=== PATIENT | female | born 1990 | race American Indian/Alaskan Native ===

== ENCOUNTER 2017-09-13 20:13 | Emergency (ER) | payer SELFPAY ==
--- NOTE | 2017-09-14 01:28 | Emergency Department Report ---
ED Rash HPI - HPI Chief Complaint: Allergic Reaction Stated Complaint: SWOLLEN LIPS Time Seen by Provider: 09/14/17 01:25 Duration: 2 Days Location: Other (lower left lip) Suspected Cause: Unknown Rash Symptoms: Yes Blistering (lower left lip sore that started out as a blister 2 days ago.), No Itching, No Facial Swelling, No Tongue/Oral Swelling, No Breathing Difficulties, No Choking Sensation, No Wheezing/Dyspnea, No Peeling , No Fever, No Lightheaded, No Malaise, No Myalgias Severity: mild (3/10 with touch) Other History: Patient reports that she has a sore to the bottom left lip that started 2 days ago. She says she has had in the past but it wasn't so bad. She said is not allergic reaction. She reports pain to touch. Denies any nausea or vomiting. Denies any shortness of breath or chest pain. Denies any soreness down, drooling, sore throat or difficulty speaking. Denies any coughing or wheezing. Last menstrual cycle was 09/13/2017. No over-the- counter medication taken. Pain worse with touching. Patient with elevated blood pressure but reports that she's never had high blood pressure in the past. Denies any headache, visual difficulties, nausea vomiting or blurred vision. Denies any chest pain or shortness of breath. ED Review of Systems ROS: Stated complaint: SWOLLEN LIPS Other details as noted in HPI Comment: All other systems reviewed and negative Constitutional: no symptoms reported Eyes: denies: eye pain, eye discharge ENT: other (swelling to lower left lip with sore.). denies: throat pain, congestion Respiratory: no symptoms reported Cardiovascular: denies: chest pain, palpitations, dyspnea on exertion, edema, syncope, paroxysmal nocturnal dyspnea Gastrointestinal: denies: abdominal pain, nausea, vomiting, diarrhea, constipation Genitourinary: denies: dysuria, hematuria Musculoskeletal: denies: back pain, joint swelling, arthralgia, myalgia Skin: rash Neurological: denies: headache, abnormal gait, vertigo ED Past Medical Hx - Past Medical History Previous Medical History?: No - Surgical History Past Surgical History?: No - Family History Family history: no significant - Social History Smoking Status: Never Smoker Substance Use Type: None - Medications Home Medications: Home Medications Medication Instructions Recorded Confirmed Last Taken Type Ibuprofen [Motrin] 600 mg PO Q8H PRN #12 tablet 09/14/17 Unknown Rx Valacyclovir HCl [Valtrex] 1,000 mg PO TID 7 Days #21 tablet 09/14/17 Unknown Rx Rash Exam - Exam General: Vital signs noted. No distress. Alert and acting appropriately. This is a 26-year-old female well-nourished well-developed in no acute distress. HEENT: No Periorbital Edema, No Conjuctival Injection, No Chemosis, No Perioral Edema, No Tongue Edema, No Uvular Edema, No Compromised Airway, No Drooling ( oral airways patent.) Lungs: Yes Good Air Exchange (clear to auscultate bilaterally,), Yes Other Abnormal Lung Sounds (patient with swelling in to left lower lip with herpetic type lesion that is tender to palpate no drainage.), No Wheezes, No Ronchi, No Stridor, No Cough, No Labored Respirations, No Retractions, No Use of Accessory Muscles Heart: Yes Regular (S1, S2. Regular rate and rhythm), No Murmur Skin: Yes Tenderness (left lower lip), Yes Erythema (left lower lip), Yes Edema (left lower lip), Yes Other (lesion to left lower lip tender to palpate with surrounding erythema and swelling. No airway compromise), No Urticarial Rash, No Maculopapular Rash, No Morbilliform rash, No Bulla(e), No Excoriations, No Weeping Other: Positive: Abdomen Normal (nontender to palpate in all quadrants, no guarding or rebound tenderness and normal bowel sounds), Neurologic Normal ( alert and oriented 3, speech is clear and fluid, no facial droop and normal gait), Musculoskeletal Normal (full range of motion to all extremities, +2 pulses in all extremities. No clubbing, cyanosis or edema.) ED Course Vital Signs 09/13/17 09/13/17 20:36 20:44 Temperature 99.0 F 99 F Pulse Rate 85 Respiratory 18 18 Rate Blood Pressure 133/100 155/102 O2 Sat by Pulse 100 Oximetry Vital Signs 09/13/17 09/13/17 09/14/17 20:36 20:44 01:52 Temperature 99.0 F 99 F 98.5 F Pulse Rate 85 74 Respiratory 18 18 17 Rate Blood Pressure 133/100 155/102 Blood Pressure 147/102 [Right] O2 Sat by Pulse 100 100 Oximetry - Reevaluation(s) Reevaluation #1: 09/14/17 01:44 Patient had uneventful ED stay. ED Medical Decision Making - Medical Decision Making ED course: Patient with herpetic-type lesion to left lower lip that started 2 days ago. She's had similar incident in the past but she said it was not as bad. I discussed with her diagnosis and treatment plan. Patient also with elevated blood pressure during ED stay. She denies having a history of high blood pressure. She is asymptomatic. I discussed with her that she needs to keep a log of her blood pressure and when she goes to [facility] to bring to primary care visit. She voiced understanding and patient discharged home with her family with prescription for Valtrex and Motrin, to follow up with primary care physician and 2-3 days and if she does not have one to follow-up with [facility]. Critical care attestation.: If time is entered above; I have spent that time in minutes in the direct care of this critically ill patient, excluding procedure time. ED Disposition Clinical Impression: Cold sore, Pain, lip, Elevated blood pressure reading without diagnosis of hypertension Disposition: DC-01 TO HOME OR SELFCARE Is pt being admited?: No Does the pt Need Aspirin: No Condition: Stable Instructions: Oral Herpes Simplex Virus Infections (ED), DASH Eating Plan (ED) , Low Sodium Diet (ED), Hypertension (ED) Additional Instructions: The same Valtrex as prescribed for hepatic lesion on your mouth Keep affected area clean and dry Follow-up with outside Medical Center in 2-3 days Please keep a log a few blood pressure and take to primary care physician with you for evaluation. Prescriptions: Ibuprofen [Motrin] 600 mg PO Q8H PRN #12 tablet PRN Reason: Pain Valacyclovir HCl [Valtrex] 1,000 mg PO TID 7 Days #21 tablet Referrals: [facility] [Outside] - 2-3 Days Forms: Accompanied Note, Work/School Release Form(ED)
[2017-09-14 01:52] VITALS: BP 147/102
== END 2017-09-14 02:00 | disposition home or self-care (01) ==
LOC: ED 20:13
DX: B00.1 Herpesviral vesicular dermatitis (principal); R03.0 Elevated blood-pressure reading, without diagnosis of hypertension
CPT/HCPCS: 99282

== ENCOUNTER 2018-02-18 17:17 | Emergency (ER) | payer OTHER ==
--- NOTE | 2018-02-19 00:10 | Emergency Department Report ---
ED Lower Extremity HPI - General Chief Complaint: Extremity Injury, Lower Stated Complaint: LEFT TOE PAIN Time Seen by Provider: 02/18/18 23:26 Source: patient Mode of arrival: Ambulatory Limitations: No Limitations - History of Present Illness Initial Comments: This is a 27-year-old female nontoxic, well nourished in appearance, no acute signs of distress presents to the ED with c/o of right great toe pain 1 day. Patient stated that she hit her toe against the refrigerator. Patient denies any other trauma. Patient denies any numbness, tingling, fever, chills, nausea , vomiting, chest pain, shortness of breath, headache, stiff neck. Patient denies any joint swelling or joint redness. Patient denies decreased range of motion. Patient stated has decreased gait due to pain. Patient denies any allergies or significant past medical history. MD Complaint: other (great toe pain) -: days(s) (1) Injury: Toes: Right Severity: mild Severity scale (0 -10): 8 Improves With: immobilization Worsens With: movement, palpation Context: direct blow Associated Symptoms: able to partially bear weight, ambulatory. denies: snap/ pop sensation, swelling, numbness, tingling, unable to bear weight - Related Data Previous Rx's Medication Instructions Recorded Last Taken Type Ibuprofen [Motrin] 600 mg PO Q8H PRN #12 tablet 09/14/17 Unknown Rx Valacyclovir HCl [Valtrex] 1,000 mg PO TID 7 Days #21 tablet 09/14/17 Unknown Rx Acetaminophen/Codeine [Tylenol 1 tab PO Q6H PRN #12 tab 02/19/18 Unknown Rx /Codeine # 3 tab] Ibuprofen [Motrin] 600 mg PO Q8H PRN #30 tablet 02/19/18 Unknown Rx Allergies Allergy/AdvReac Type Severity Reaction Status Date / Time No Known Allergies Allergy Unverified 09/13/17 20:50 ED Review of Systems ROS: Stated complaint: LEFT TOE PAIN Other details as noted in HPI Constitutional: denies: chills, fever Eyes: denies: eye pain, eye discharge, vision change ENT: denies: ear pain, throat pain Respiratory: denies: cough, shortness of breath, wheezing Cardiovascular: denies: chest pain, palpitations Endocrine: no symptoms reported Gastrointestinal: denies: abdominal pain, nausea, diarrhea Genitourinary: denies: urgency, dysuria, discharge Musculoskeletal: denies: back pain, joint swelling, arthralgia Skin: denies: rash, lesions Neurological: denies: headache, weakness, paresthesias Psychiatric: denies: anxiety, depression Hematological/Lymphatic: denies: easy bleeding, easy bruising ED Past Medical Hx - Past Medical History Hx Kidney Stones: Yes - Surgical History Hx Appendectomy: Yes - Social History Smoking Status: Former Smoker Substance Use Type: None - Medications Home Medications: Home Medications Medication Instructions Recorded Confirmed Last Taken Type Ibuprofen [Motrin] 600 mg PO Q8H PRN #12 tablet 09/14/17 Unknown Rx Valacyclovir HCl [Valtrex] 1,000 mg PO TID 7 Days #21 tablet 09/14/17 Unknown Rx Acetaminophen/Codeine [Tylenol 1 tab PO Q6H PRN #12 tab 02/19/18 Unknown Rx /Codeine # 3 tab] Ibuprofen [Motrin] 600 mg PO Q8H PRN #30 tablet 02/19/18 Unknown Rx ED Physical Exam - General Limitations: No Limitations General appearance: alert, in no apparent distress - Head Head exam: Present: atraumatic, normocephalic - Eye Eye exam: Present: normal appearance - ENT ENT exam: Present: mucous membranes moist - Neck Neck exam: Present: normal inspection - Respiratory Respiratory exam: Present: normal lung sounds bilaterally. Absent: respiratory distress - Cardiovascular Cardiovascular Exam: Present: regular rate, normal rhythm. Absent: systolic murmur, diastolic murmur, rubs, gallop - GI/Abdominal GI/Abdominal exam: Present: soft, normal bowel sounds - Extremities Exam Extremities exam: Present: normal inspection, full ROM, tenderness, normal capillary refill. Absent: joint swelling - Expanded Lower Extremity Exam Right Hip exam: Present: normal inspection, full ROM. Absent: tenderness, swelling Upper Leg exam: Present: normal inspection, full ROM. Absent: tenderness, swelling Knee exam: Present: normal inspection, full ROM. Absent: tenderness, swelling Lower Leg exam: Present: normal inspection, full ROM. Absent: tenderness, swelling Ankle exam: Present: normal inspection, full ROM. Absent: tenderness, swelling Foot/Toe exam: Present: normal inspection, full ROM, tenderness, ecchymosis. Absent: swelling, abrasion, laceration, deformity, crepidus, dislocation, erythema, amputation, puncture wound, foreign body, calcaneal tenderness, tenderness at base of 5th metatarsal, nail avulsion, subungual hematoma Neuro vascular tendon exam: Present: no vascular compromise. Absent: pulse deficit, abnormal cap refill, motor deficit, sensory deficit, tendon deficit, extremity cold to touch, pallor, abnormal 2-point discrimination, decreased fine /light touch, foot drop, peroneal nerve deficit, significant pain with passive ROM of distal joint Gait: Positive: observed and limited by pain 1 - pain here - Back Exam Back exam: Present: normal inspection, full ROM - Neurological Exam Neurological exam: Present: alert, oriented X3, normal gait - Psychiatric Psychiatric exam: Present: normal affect, normal mood - Skin Skin exam: Present: warm, dry, intact, normal color. Absent: rash ED Course Vital Signs 02/18/18 17:26 Temperature 98.2 F Pulse Rate 84 Respiratory 16 Rate Blood Pressure 136/95 O2 Sat by Pulse 98 Oximetry - Reevaluation(s) Reevaluation #1: 02/19/18 00:09 Patient is speaking in full sentences with no signs of distress noted. ED Lower Extremity MDM - Medical Decision Making This is a 27-year-old female that presents with right toe contusion. Patient is stable and was examined by me. X-ray has been obtained and dictated by the radiologist. Patient is notified of the x-ray report with noted by the patient. Patient does have normal gait with no tenderness and no joint swelling. No ecchymosis. no joint redness or swelling. Not warm to touch. No signs of cellulites present. Patient was instructed to RICE therapy. Patient received Motrin for pain. Patient is discharged with Motrin and Tylenol #3. At time of discharge, the patient does not seem toxic or ill in appearance. No acute signs of distress noted. Patient agrees to discharge treatment plan of care. No further questions noted by the patient. Critical care attestation.: If time is entered above; I have spent that time in minutes in the direct care of this critically ill patient, excluding procedure time. ED Disposition Clinical Impression: Contusion of right great toe without damage to nail Qualifiers: Encounter type: initial encounter Qualified Code(s): S90.111A - Contusion of right great toe without damage to nail, initial encounter Disposition: TO HOME OR SELFCARE Is pt being admited?: No Does the pt Need Aspirin: No Condition: Stable Instructions: Foot Contusion (ED), RICE Therapy (ED), Ibuprofen (By mouth), Acetaminophen/Codeine (By mouth) Additional Instructions: Follow-up with a orthopedic doctor in 3-5 days or if symptoms worsen and continue return to emergency room as soon as possible. Do not operate any machinery while taking Tylenol with codeine as this may cause drowsiness. Prescriptions: Acetaminophen/Codeine [Tylenol /Codeine # 3 tab] 1 tab PO Q6H PRN #12 tab PRN Reason: Pain , Severe (7-10) Ibuprofen [Motrin] 600 mg PO Q8H PRN #30 tablet PRN Reason: Pain Referrals: PRIMARY MD DONALD [Primary Care Provider] - 3-5 Days TOYA SOLORIO MD [Staff Physician] - 3-5 Days [facility] [Outside] - 3-5 Days Forms: Work/School Release Form(ED)
--- NOTE | 2018-02-19 00:37 | XRay Report ---
FINAL REPORT PROCEDURE: XR FOOT 2V LT TECHNIQUE: Left foot radiographs, AP, lateral, and oblique views. CPT 92608 HISTORY: left big toe pain COMPARISON: No prior studies are available for comparison. FINDINGS: Fracture (s) and/or Dislocation(s): None . Alignment: Normal . Joint space(s): Normal . Soft tissues: Normal . Bone mineralization: Normal . Foreign bodies: None . Calcaneal spurring: None . IMPRESSION: Normal Examination
[2018-02-19 01:07] VITALS: BP 126/90
== END 2018-02-19 01:06 | disposition home or self-care (01) ==
LOC: ED 17:17
DX: S90.111A Contusion of right great toe without damage to nail, initial encounter (principal); Z90.49 Acquired absence of other specified parts of digestive tract; Z87.891 Personal history of nicotine dependence; X58.XXXA Exposure to other specified factors, initial encounter; Y93.89 Activity, other specified; Y92.89 Other specified places as the place of occurrence of the external cause; Y99.8 Other external cause status
CPT/HCPCS: 99283